=== PATIENT | female | born 1975 | race Caucasian/White ===

== ENCOUNTER 2017-04-22 12:29 | Emergency (ER) | payer MEDICAID ==
[~2017-04-22] VITALS: Ht 175.3 cm; Wt 113.6 kg
[2017-04-22] MEDS ORDERED: METHOCARBAMOL 500 MG TABLET PO ONE (14:30)
[2017-04-22] MEDS ORDERED: KETOROLAC TROMETHAMINE 60 MG/2 ML VIAL IM ONE (14:30)
[2017-04-22 15:08] VITALS: BP 139/82
== END 2017-04-22 15:21 | disposition home or self-care (01) ==
LOC: EDSEX 12:33 → EMS 12:33
DX: M54.5 Low back pain (principal); V49.40XA Driver injured in collision with unspecified motor vehicles in traffic accident, initial encounter; Y93.89 Activity, other specified; Y92.89 Other specified places as the place of occurrence of the external cause; Y99.8 Other external cause status
CPT/HCPCS: 96372; 99283; J1885